=== PATIENT | male | born 1970 ===

== ENCOUNTER 2016-11-13 08:37 | Outpatient (CLI) | payer OTHER ==
--- NOTE | 2016-11-13 09:49 | XRay Report ---
Left hand 3 views: History: Hand pain. Findings: No bony or articular abnormality. No fracture dislocation or periosteal reaction or soft tissue calcification. Impression: Essentially negative left hand.
== END 2016-11-13 08:38 | disposition home or self-care (01) ==
LOC: SPVIMAG 08:37
PROVIDERS: ATTEND Orthopaedic Surgery
DX: M25.542 Pain in joints of left hand (principal)